=== PATIENT | male | born 1990 | race Two or more races ===

== ENCOUNTER 2024-09-03 10:30 | Outpatient (RCR) | payer MEDICAID, SELFPAY ==
--- NOTE | 2024-08-26 10:22 | PT.OIERPT ---
PT OP Initial Eval Patient Information Outpatient Physical Therapy Treatment Date: 08/26/24 Visit Reasons: Pain in Right knee Medical Diagnosis: M25.561 Treatment Dx #1: Right Knee Pain Treatment Dx #2: Right Knee Weakness Start of Care: 08/26/24 Date of Onset: 05/27/24 Smoking Status Smoking Status: Never smoker Initial Assessment Subjective: Pt is a 33 y/o male s/p right ACL reconstruction 05/27/24 due to knee injury in Oct. Pt still has knee pain (8/10) with activities. Pt has limitation with walking, standing, chores, self care, cooking, cleaning, work duties, and performing recreational activities. Objective: Right Knee AROM: 0 deg to 130 deg with pain Right Knee MMTs: grossly 3+/5 Right Hip MMTs: grossly 3+/5 SLS: NT Assessment: Pt demonstrate right knee pain and weakness s/p ACL reconstruction leading to difficulty with ADLs. Pt will benefit from physical therapy to increase ROM, strenght, and work on stability. [employer] Term and [employer] In[employer] Goals 1) Increase right knee AROM WNL in 12 wks to be able to perform chores 2) Decrease knee pain to 2/10 in 12 wks to be able to perform stairs and steps 3) Increase right knee MMTs grossly to 4/5 in 12 wks to be able to perform recreational activities 4) Increase right hip MMTs grossly to 4-/5 in 12 wks to be able to perform work duties 5) Indep with HEP Treatment Plan 1) Manual Therapy 2) Therapeutic Activities 3) Therapeutic Exercises 4) Modalities (ice, heat) 5) Balance Training 6) Gait Training Frequency and Duration: 2 x wk for 12 wks Certification Dates: 08/26/24 to 11/26/24 Procedure Charges OP PT Eval Mod Complex 30 minutes: Yes
--- NOTE | 2024-08-28 10:08 | PT.ODAYNRPT ---
PT Outpatient Daily Note OP Daily Note Outpatient Physical Therapy Treatment Date: 08/28/24 Visit Reasons: Pain in Right knee Subjective: Pt reports knee still bothers him, stiffness present. Objective: Please see flow sheet for ther ex list. Assessment: Pt demonstrates poor knee extension during squat exercise due to discomfort present. Plan: Assess response to treatment. Length of Time (minutes) of Treatment: 30 Minutes Procedure Charges Therapeutic Exercise 30 minutes: Yes
--- NOTE | 2024-09-01 11:21 | PT.ODAYNRPT ---
PT Outpatient Daily Note OP Daily Note Outpatient Physical Therapy Treatment Date: 09/01/24 Visit Reasons: Pain in Right knee Subjective: Pt's knee is hurting less. Pt still notice some instability with squatting motions. Objective: Please see flow chart for list of ther ex performed Assessment: advanced patient to more closed chain and hip strengthening exercises with good tolerance Plan: Continue with PT Length of Time (minutes) of Treatment: 30 Minutes Procedure Charges Therapeutic Exercise 30 minutes: Yes
--- NOTE | 2024-09-03 11:35 | PT.ODAYNRPT ---
PT Outpatient Daily Note OP Daily Note Outpatient Physical Therapy Treatment Date: 09/03/24 Visit Reasons: Pain in Right knee Subjective: Pt c/o sharp pain on the back of R knee and soreness in the back of the thigh. Objective: Please see flow sheet for ther ex list. Assessment: regressed interventions to accommodate reported pain. Pt instructed on HEP for light HS stretches. Plan: Continue with pOC. Length of Time (minutes) of Treatment: 30 Minutes Procedure Charges Therapeutic Exercise 30 minutes: Yes
== END 2024-09-06 23:59 | disposition home or self-care (01) ==
LOC: CPTX 10:30
PROVIDERS: PCP Orthopaedic Surgery Orthopaedic Trauma; Referring Provider Orthopaedic Surgery Orthopaedic Trauma; Visit Provider Orthopaedic Surgery Orthopaedic Trauma
DX: M25.561 Pain in right knee (principal); R53.1 Weakness; S89.91XD Unspecified injury of right lower leg, subsequent encounter; X58.XXXD Exposure to other specified factors, subsequent encounter
CPT/HCPCS: 97110; 97162

== ENCOUNTER 2024-09-26 14:00 | Outpatient (RCR) | payer MEDICAID, SELFPAY ==
--- NOTE | 2024-09-16 14:22 | PT.ODAYNRPT ---
PT Outpatient Daily Note OP Daily Note Outpatient Physical Therapy Treatment Date: 09/16/24 Subjective: Pt reports that he has days where knee hurts a lot and feels knee still swells up at times. Pt shared he has a follow up with MD on the . Objective: Please see flow sheet for ther ex list. Assessment: Korin chaparro after step up and SLB exercise indicating quad strength impairment. Plan: Continue with POc. Length of Time (minutes) of Treatment: 30 Minutes Procedure Charges Therapeutic Exercise 30 minutes: Yes
--- NOTE | 2024-09-18 13:57 | PT.ODAYNRPT ---
PT Outpatient Daily Note OP Daily Note Outpatient Physical Therapy Treatment Date: 09/18/24 Subjective: Pt reports R knee is doing ok, still has pian with certain movement and activities and clicking/popping. Objective: Please see flow sheet for ther ex list. Assessment: Progressing strengthening interventions within post op protocol. Pt performed SLBcan hold for ~8 seconds with minimal sway. Plan: Continue with pOC. Length of Time (minutes) of Treatment: 30 Minutes Procedure Charges Therapeutic Exercise 30 minutes: Yes
--- NOTE | 2024-09-23 15:48 | PT.ODAYNRPT ---
PT Outpatient Daily Note OP Daily Note Outpatient Physical Therapy Treatment Date: 09/23/24 Subjective: Pt mentioned he continues to have pain in the front of the knee. Objective: Please see flow sheet for ther ex list. Assessment: Pt continues to have anterior knee pain with activities delaying progress in clinic. Plan: Continue with POC. Length of Time (minutes) of Treatment: 30 Minutes Procedure Charges Therapeutic Exercise 30 minutes: Yes
--- NOTE | 2024-09-26 15:14 | PT.ODAYNRPT ---
PT Outpatient Daily Note OP Daily Note Outpatient Physical Therapy Treatment Date: 09/26/24 Subjective: Pt reports R knee hurts occasionally. Pt had follow up with surgeon and surgeon mentioned it could be scar tissue causing pain. Objective: Please see flow sheet for ther ex list. Assessment: Pt instructed on lunges, cues to perform to tolerable lunge depth pt complied. Pt demonstrates good knee mechanics with forward lunge exercise. Plan: Continue with POC. Length of Time (minutes) of Treatment: 30 Minutes Procedure Charges Therapeutic Exercise 30 minutes: Yes
== END 2024-10-07 23:59 | disposition home or self-care (01) ==
LOC: CPTX 14:00
PROVIDERS: PCP Orthopaedic Surgery Orthopaedic Trauma; Referring Provider Orthopaedic Surgery Orthopaedic Trauma; Visit Provider Orthopaedic Surgery Orthopaedic Trauma
DX: M25.561 Pain in right knee (principal); R53.1 Weakness; R26.2 Difficulty in walking, not elsewhere classified; S89.91XD Unspecified injury of right lower leg, subsequent encounter; X58.XXXD Exposure to other specified factors, subsequent encounter
CPT/HCPCS: 97110

== ENCOUNTER → 2024-10-16 | Outpatient (CLI) | payer MEDICAID, SELFPAY ==
--- NOTE | 2024-10-16 14:45 | XR_ITS ---
Examination: MRI cervical spine without intravenous contrast Date and time of exam: October 16, 2024 1524 hours INDICATIONS: Left-sided neck pain radiating down the left shoulder beginning 6 months ago into the left arm Technique: Multiple axial and sagittal sections of the cervical spine to been obtained. T2 weighted sagittal sections, TR 3, 270, TE 117 T1-weighted sagittal sections, TR 500, TE 11 T1-weighted axial sections, TR 607, TE 12, axial sections TR 18, TE 27 and T2 weighted transverse sections, TR 3920, TE 122. Findings: Adequate alignment lumbar vertebral bodies Disc desiccation C3-C4, C4-C5, C5-C6 No cervical fracture Intact odontoid No localized enlargement cervical cord No syrinx cavity C2-C3 no disc protrusion C3-C4 mild right neural foraminal stenosis C4-C5 2 mm central subarticular osteophyte disc complex, moderate bilateral neural foraminal stenosis C6-C7 2 mm central subarticular osteophyte disc complex, moderate bilateral neural foraminal stenosis C6-C7 no disc protrusion C7-T1 no disc protrusion IMPRESSION: C4-C5, C5-C6 moderate bilateral neural foraminal stenosis
== END | disposition home or self-care (01) ==
LOC: SMRI 14:36
PROVIDERS: PCP Obstetrics & Gynecology; Referring Provider Psychiatry & Neurology Neurology; Visit Provider Psychiatry & Neurology Neurology
DX: M48.02 Spinal stenosis, cervical region (principal)
CPT/HCPCS: 72141

== ENCOUNTER 2024-11-04 14:00 | Outpatient (RCR) | payer MEDICAID, SELFPAY ==
--- NOTE | 2024-10-17 14:34 | PT.ODAYNRPT ---
PT Outpatient Daily Note OP Daily Note Outpatient Physical Therapy Treatment Date: 10/17/24 Visit Reasons: Cervicalgia Subjective: Pt reports he was ill so he could not come in for over a week but was compliant with HEP. Pt mentioned knee feels like it is progressing but ROM and strength are not where he would like. Objective: Please see flow sheet for ther ex list. Assessment: Progressing strengthening as per post op protocol. Plan: Continue with POC. Length of Time (minutes) of Treatment: 30 Minutes Procedure Charges Therapeutic Exercise 30 minutes: Yes
--- NOTE | 2024-10-22 16:14 | PT.ODAYNRPT ---
PT Outpatient Daily Note OP Daily Note Outpatient Physical Therapy Treatment Date: 10/22/24 Visit Reasons: Cervicalgia Subjective: Pt reports knee progress is slow, still does not feel like he can straighten his knee all the way compared to contralateral side. Objective: Please see flow sheet for ther ex list. Assessment: Pt instructed on updated HEP, pt presents with knee extension lag during SLR indicating quad strength impairment. Plan: Continue with POC. Length of Time (minutes) of Treatment: 30 Minutes Procedure Charges Therapeutic Exercise 30 minutes: Yes
--- NOTE | 2024-10-30 13:04 | PT.ODAYNRPT ---
PT Outpatient Daily Note OP Daily Note Outpatient Physical Therapy Treatment Date: 10/30/24 Visit Reasons: Cervicalgia Subjective: Pt reports knee is doing ok, has been compliant with HEP. Objective: Please see flow sheet for ther ex list. Assessment: Pt instructed on SLB cone reach exercise, pt presents with minimal sway but after a few repetitions pt demonstrates improved stability. Plan: Continue with pOC. Length of Time (minutes) of Treatment: 30 Minutes Procedure Charges Therapeutic Exercise 30 minutes: Yes
--- NOTE | 2024-11-18 12:16 | PT.ODS1RPT ---
PT OP Progress/Discharge Note Date of Service: 11/18/24 Progress Note/DC Note Progress Note/Discharge Note: Progress Note Patient Information Visit Reasons: Cervicalgia Medical Diagnosis: M25.561 Treatment Dx #1: Right Knee Pain Treatment Dx #2: Right Knee Weakness Service Continue Service or Discharge: Continue Service Certification Date Certification Dates: 11/18/24 to 02/15/15 Status Subjective: Pt's knee is better, however, feels unstable and weak with certain activities. Pt has been able to walk, stand, and perform chores with less limitation. Pt still has limitation with running, deep squatting, and performing recreational activities. Objective: Right Knee AROM: WNL Right Knee MMTs: grossly 4-/5 Right Hip MMTs: grossly 3+/5 SLS: 15 sec Assessment: Pt is progressing with knee mobility and strength allowing him to resume ADLs, ambulate, and perform chores with less limitation. Pt has not met set goals and will continue to benefit from physical therapy to increase strength, balance, and overall LE stability; thank you for your referrals. Plan: Continue with PT/POC and add 12 sessions (2 x wk for 6 wks)
== END 2024-11-07 23:59 | disposition home or self-care (01) ==
LOC: CPTX 14:00
PROVIDERS: PCP Orthopaedic Surgery Orthopaedic Trauma; Referring Provider Orthopaedic Surgery Orthopaedic Trauma; Visit Provider Orthopaedic Surgery Orthopaedic Trauma
DX: M25.561 Pain in right knee (principal); R53.1 Weakness; S89.91XD Unspecified injury of right lower leg, subsequent encounter; X58.XXXD Exposure to other specified factors, subsequent encounter; R26.2 Difficulty in walking, not elsewhere classified
CPT/HCPCS: 97110

== ENCOUNTER 2024-11-26 15:34 | Outpatient (RCR) | payer MEDICAID, SELFPAY ==
--- NOTE | 2024-11-26 16:03 | PT.ODAYNRPT ---
PT Outpatient Daily Note OP Daily Note Outpatient Physical Therapy Treatment Date: 11/26/24 Visit Reasons: Pain in RT knee Subjective: Pt fell two weeks ago while walking. Pt still has knee pain, however, can resume physical therapy today. Pt will be seeing the surgeon in a few weeks. Pt's PCP wants to extend his disability. Objective: Please see flow chart for list of ther ex performed Assessment: slow progress with strengthening exercises due to knee pain intermittently. Pt's knee inspected and safe to resume physical therapy s/p fall ~ 2 weeks ago. Plan: Continue with PT Length of Time (minutes) of Treatment: 30 Minutes Procedure Charges Therapeutic Exercise 30 minutes: Yes
== END 2024-12-05 23:59 | disposition home or self-care (01) ==
LOC: CPTX 15:34
PROVIDERS: PCP Orthopaedic Surgery Orthopaedic Trauma; Referring Provider Orthopaedic Surgery Orthopaedic Trauma; Visit Provider Orthopaedic Surgery Orthopaedic Trauma
DX: M25.561 Pain in right knee (principal); R53.1 Weakness; R26.2 Difficulty in walking, not elsewhere classified; S89.91XD Unspecified injury of right lower leg, subsequent encounter; X58.XXXD Exposure to other specified factors, subsequent encounter
CPT/HCPCS: 97110

== ENCOUNTER 2024-12-12 15:32 | Outpatient (RCR) | payer MEDICAID, SELFPAY ==
--- NOTE | 2024-12-12 16:09 | PT.ODAYNRPT ---
PT Outpatient Daily Note OP Daily Note Outpatient Physical Therapy Treatment Date: 12/12/24 Visit Reasons: right knee pain Subjective: Pt's knee feels better. Pt wants to focus on strength. Objective: Please see flow chart for list of ther ex performed Assessment: added 12# with heel raise and fwd lunge exercises with good tolerance to weight Plan: Continue with PT Length of Time (minutes) of Treatment: 30 Minutes Procedure Charges Therapeutic Exercise 30 minutes: Yes
--- NOTE | 2025-01-20 11:09 | PT.ODS1RPT ---
PT OP Progress/Discharge Note Date of Service: 01/20/25 Progress Note/DC Note Progress Note/Discharge Note: DC Note Patient Information Visit Reasons: right knee pain Service Discharge Date: 01/20/25 Status Assessment: Pt has been seen for 15 visits (eval + 14 visits) inconsistently. Pt last treated on 12/12/24. Pt has multiple no showed appts (10/14, 10/24, 12/01, and 12/19). At this time Pt will be d/c from care due to non-compliance per attendance policy. Pt did not meet set goals in therapy; thank you for your referrals.
== END 2025-01-05 23:59 | disposition home or self-care (01) ==
LOC: CPTX 15:32
PROVIDERS: PCP Orthopaedic Surgery Orthopaedic Trauma; Referring Provider Orthopaedic Surgery Orthopaedic Trauma; Visit Provider Orthopaedic Surgery Orthopaedic Trauma
DX: M25.561 Pain in right knee (principal); R53.1 Weakness; R26.2 Difficulty in walking, not elsewhere classified
CPT/HCPCS: 97110